=== PATIENT | female | born 1930 | race Caucasian/White ===

== ENCOUNTER 2016-10-10 12:41 | Inpatient (IN) | payer MEDICARE, BC ==
[~2016-10-10] VITALS: Ht 162.6 cm; Wt 70.4 kg
[~2016-10-10 12:41] MED LIST: ALEVE 220MG220 MG PO; ATENOLOL100 MG PO; BENADRYL25 M2 PO; CALCIUM 600MG+D1 TAB PO; CELEBREX 200MG200 MG PO; CRANBERRY FRUI405 MG PO; CRANBERRY1 CAP PO; GEMCOR600 MG PO; KLONOPIN 0.5MG0.5 MG PO; LOPID 600M600 MG/TAB PO; MIRAPEX0.5 MG PO; MIRAPEX1 MG PO; MYRBETR25MG PO; NORCO 325 MG-51 TAB PO; NORCO 325 MG-7.1 TAB PO; PRILOSEC OTC20 MG PO; PRILOTC PO; QUALAQUIN324 MG PO; ROXICODONE 55 MG/TAB PO; TENORMIN100 MG PO; TOVIAZ4 MG PO; ULTRAM 50MG TAB50 MG PO; VITAMIN D31000 IU PO
[2016-11-07] MEDS ORDERED: CELEBREX 200MG200 MG PO (14:52)
[2016-11-07] MEDS ORDERED: SINGULAIR 110 MG/TAB PO (14:54)
[2016-11-08] VITALS (10 sets, daily range): BP systolic 105–191; BP diastolic 40–73; PULSE 64–73; TEMP 97.6–98
[2016-11-08] MEDS ORDERED: BENADRYL ALLERG25 M2 PO (08:22)
[2016-11-09 00:40] VITALS: BP 120/45; PULSE 67; TEMP 97.9
[2016-11-09 04:39] VITALS: BP 116/40; PULSE 65; TEMP 97.6
[2016-11-09 07:47] LABS: HEMATOCRIT 31.8 % (37.0-47.0); HEMOGLOBIN 10.3 g/dl (12.5-16.0)
[2016-11-09 08:05] VITALS: BP 118/39; PULSE 71; TEMP 97
[2016-11-09 11:38] VITALS: BP 120/47; PULSE 67; TEMP 97.4
[2016-11-09 20:21] VITALS: BP 130/48; PULSE 75; TEMP 98
[2016-11-10 04:24] VITALS: BP 125/44; PULSE 72; TEMP 97.5
[2016-11-10 07:24] VITALS: BP 136/46; PULSE 74; TEMP 98.5
[2016-11-10] MEDS ORDERED: NORCO 325 MG-7.1 TAB PO (07:24)
[2016-11-10] MEDS ORDERED: ASPI325T6 PO (07:24)
[2016-11-10] MEDS ORDERED: COLACE 100100 MG/CAP PO (07:25)
[2016-11-10 07:38] LABS: HEMATOCRIT 31.7 % (37.0-47.0); HEMOGLOBIN 10.3 g/dl (12.5-16.0)
== END 2016-11-10 10:19 | disposition home or self-care (01) | DRG 483 ==
LOC: JCC 11-08 07:30
PROVIDERS: Orthopaedic Surgery
PROC: 0RRK00Z Replacement of Left Shoulder Joint with Reverse Ball and Socket Synthetic Substitute, Open Approach (ICD-10-PCS; principal; 2016-11-08 10:30)
DX: M19.012 Primary osteoarthritis, left shoulder (principal); I10 Essential (primary) hypertension; Z87.891 Personal history of nicotine dependence
CPT/HCPCS: A4315; C1713; C1776; J0360; J1100; J1170; J1885; J2250; J2405; J2704; J2710; J3010; J7120

== ENCOUNTER → 2016-11-01 | Outpatient (CLI) | payer MEDICARE, BC ==
[~2016-11-01] MED LIST changes: +ASPI325T6 PO; +BENADRYL ALLERG25 M2 PO; +COLACE 100100 MG/CAP PO; +SINGULAIR 110 MG/TAB PO
[2016-11-01 14:16] LABS: HIV-1p24 Antigen Non-Reactive
[2016-11-01 14:17] LABS: HIV 1/2 Antibodies Non-Reactive
== END ==
LOC: COL.LAB 11:44
PROVIDERS: Orthopaedic Surgery
DX: Z01.812 Encounter for preprocedural laboratory examination (principal); M25.812 Other specified joint disorders, left shoulder

== ENCOUNTER → 2018-10-03 | Outpatient (CLI) | payer MEDICARE, BC | LOC: COL.RAD 13:18 | DX: E05.00 Thyrotoxicosis with diffuse goiter without thyrotoxic crisis or storm (principal); E04.2 Nontoxic multinodular goiter | CPT/HCPCS: A9517 ==